=== PATIENT | male | born 1950 | race Caucasian/White ===

== ENCOUNTER 2017-11-01 09:53 | Inpatient (IN) ==
--- OUTSIDE RECORDS SUMMARY | 2017-11-01 11:23 | External Medical Summary | Continuity of Care Document ---
:1950 Demographics Phone Unavailable Preferred Language Unknown Marital Status Unknown Protestant Affiliation Unknown Race Unknown Ethnic Group Unknown Author Organization [facility] Allergies There is no data. Medications There is no data. Problems There is no data. Procedures There is no data. Results There is no data. Encounters ACCT No. Visit Discharge Status Pt. Type Provider Facility Loc./Unit Complaint Date/Time [id number] 10/14/2015 ACT Unknown 0125 08:06:00
[2017-11-01 11:40] VITALS: BMI 25.8
[2017-11-01] MEDS ORDERED: METOPROLOL 5mg/5ml INJECTION IVP ONE (11:43)
--- NOTE | 2017-11-01 11:54 | Cardiology History & Physical ---
History of Present Illness Chief complaint: pneumonia HPI: Valente is a 67 year old male who has been ill with the flu and community acquired pneumonia since 10/26 who was admitted to [facility] yesterday and today was found to be in atrial fibrillation with RVR and Dr. العراقي was contacted for admission to [facility] for further evaluation and treatment. He is examined in his room in CCU. He reports fever, chills, cough, no appetite , N/V. He denies chest pain or pressure, no palpitations, skipping or racing heart beats, dyspnea on exertion, dizziness or syncope. Denies ever seeing Cardiology, denies stress test or echo in the past. Review of Systems - Constitutional Constitutional: Present: as per HPI, chills, fever(s) - EENMT Eyes: Absent: change in vision Balance: Absent: vertigo Mouth/Throat: Absent: sore throat - Cardiovascular Cardiovascular: Absent: chest pain, palpitations, syncope, dyspnea on exertion Vascular: Absent: intermittent claudication, pedal edema - Respiratory Respiratory: Present: cough, chest congestion, excessive phlegm production - Gastrointestinal Gastrointestinal: Absent: abdominal pain, diarrhea, nausea, vomiting - Genitourinary Genitourinary: Absent: dysuria - Integumentary/Breasts Integumentary: Absent: rash - Neurological Neurological: Absent: dizziness - Endocrine Endocrine: Absent: palpitations PFSH Hypertension Hyperlipidemia Osteoarthritis Surgical History: none Family History: Mother - Father - , DM Brother - Sister - DM - Social History Smoking status: Never smoker Substance use type: does not use Alcohol intake frequency: 3 or more drinks per day (beer) Housing: house Household members: spouse Current occupational status: retired Current residence: Apartment/Private Home Medications Home Medications Medication Instructions Recorded Confirmed Type Aspirin [Adult Aspirin Regimen] 81 mg PO DAILY 11/01/17 11/01/17 History Fluticasone Nasal Ax[place] [Flonase] 1 spray DAILY 11/01/17 11/01/17 History Ibuprofen [Advil] 400 mg PO TID 11/01/17 11/01/17 History Lisinopril [Prinivil] 20 mg PO DAILY 11/01/17 11/01/17 History Allergies Allergy/AdvReac Type Severity Reaction Status Date / Time No Known Allergies Allergy Verified 11/01/17 13:35 Exam Vital signs: Pulse Rate 100 11/01/17 11:39 - Constitutional no acute distress, well nourished, cooperative - Routine HEENT Exam Head: Present: normocephalic ENT: Present: mucous membranes moist - Routine Neck Exam Absent: JVD, carotid bruit - Routine Chest/Breast/Axilla Exam Chest wall: Absent: tenderness - Routine Respiratory Exam Present: CTA bilaterally. Absent: rales, wheezes - Routine Cardiovascular Exam Present: no murmur, tachycardia, irregular rhythm - Routine Abdominal Exam Present: soft, normoactive bowel sounds - Routine Extremities Exam Present: no edema - Routine Skin Exam Present: intact, dry, warm - Routine Neurological Exam Present: alert, oriented X3 - Routine Psychiatric Exam Present: normal affect, normal thought process Results 11/02/17 03:59 11/02/17 03:59 Intake and Output 10/31/17 11/01/17 11/01/17 22:59 06:59 14:59 Other: Weight 190 lb 11.198 oz Patient Weight 11/02/17 06:59 Weight 190 lb 11.198 oz Abnormal Lab Results 11/01/17 11:38 Magnesium 2.1 Troponin I < 0.012 TSH 0.80 Specimen Hemolysis < 15 EKG interpretations - EKG EKG shows: atrial fibrillation - Blocks, axis, hypertrophy, ST abn Repolarization changes or abnormalities: nonspecific abnormality, ST segment, and/or T wave Hospital Course This is a general summary of the patient's hospital course. For more details refer to the complete medical record. Time spent with patient: 25 - 35 minutes Resuscitation Status: Full Code Assessment and Plan - Attestation Attestation Narrative: 11/04/17 15:34 Recommendation After examining the patient I agree with the above assessment. I am involved in the formulation of the patient's plan of care. - Assessment and Plan (1) Atrial fibrillation with RVR Status: Acute Unknown onset, asymptomatic - NPO for ALVINA/ DCCV this after noon - 2D Echo - Had Lovenox 1mg/kg this am, will start oral anticoagulation this evening (2) Acute diastolic HF (heart failure) Status: Acute Lasix 40mg IV q 12h for diuresis (3) Pneumonia, community acquired Status: Acute Per hospitalist, Dr. Milton, thank you for your assistance (4) Essential (primary) hypertension Status: Chronic (5) Mixed hyperlipidemia Status: Chronic - Assessment and Plan A Fib RVR: Unknown onset, asymptomatic - NPO for ALVINA/ DCCV this afternoon - 2D Echo pending - Had Lovenox 1mg/kg this am, will start oral anticoagulation this evening ADHF: Lasix 40mg IV q 12h for diuresis Pneumonia: Per hospitalist, Dr. Milton, thank you for your assistance
[2017-11-01] MEDS ORDERED: SALINE FLUSH 10ml SYRINGE ONE (13:13)
--- NOTE | 2017-11-01 14:47 | Consult Note ---
Consult Information - Data of Consult Consult date: 11/01/17 Requesting Physician: Rudy العراقي MD Primary Care Provider: [facility] - Consult Narrative Reason for consult: abnormal chest xray History of present illness: Patient is a 67-year-old male who was transferred from [facility] this morning to our CCU because patient was found to be in A. fib with RVR. He was originally admitted to [facility] yesterday for pneumonia. Patient reports he's had a cough and nasal symptoms for the last week. Has maybe had a low-grade fever. He reports his chest x-ray in the clinic revealed pneumonia and he was given at least 1 dose of ceftriaxone while hospitalized at [facility]. He has had no chest pain. He has no history of atrial fibrillation. He has seen Dr. العراقي this morning and sounds like he will be undergoing ALVINA and electrical cardioversion later today. Past Medical History Medical History HTN Osteoarthritis Surgical History: L cataract Family History: F- . DM M- . Schizophrenia Sister - . DM. 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 Social history: PCP- [facility] ([place]) Review of Systems All systems PM: 10-point ROS was reviewed, no additional remarkable complaints except (cough, SOA, arthritic pains) Medications Home Medications Medication Instructions Recorded Confirmed Type Aspirin [Adult Aspirin Regimen] 81 mg PO DAILY 11/01/17 11/01/17 History Fluticasone Nasal Elrod [Flonase] 1 spray DAILY 11/01/17 11/01/17 History Ibuprofen [Advil] 400 mg PO TID 11/01/17 11/01/17 History Lisinopril [Prinivil] 20 mg PO DAILY 11/01/17 11/01/17 History Allergies Allergy/AdvReac Type Severity Reaction Status Date / Time No Known Allergies Allergy Verified 11/01/17 13:35 Exam Vital Signs: Pulse Rate 100 11/01/17 11:39 Height/Weight/BMI: Height 1.83 m Weight 86.5 kg Body Mass Index 25.8 - Constitutional Present: no acute distress, well nourished, well developed - Routine HEENT Exam Head: Present: normocephalic, atraumatic Eye: Present: EOMI, PERRL ENT: Present: mucous membranes moist, oropharynx clear - Routine Neck Exam Present: supple. Absent: lymphadenopathy, thyromegaly - Routine Respiratory Exam Present: CTA bilaterally. Absent: wheezes - Routine Cardiovascular Exam Present: no murmur, irregularly irregular - Routine Abdominal Exam Present: soft, normoactive bowel sounds. Absent: tenderness, distended - Routine Extremities Exam Present: no edema, normal capillary refill - Routine Skin Exam Present: dry, warm - Routine Neurological Exam Present: alert, oriented X3, CN II-XII intact - Routine Psychiatric Exam Present: normal affect, cooperative Results - Labs Labs: Laboratory Tests 11/01/17 11:38 Magnesium 2.1 Troponin I < 0.012 TSH 0.80 WBC-9, hemoglobin 14.3, platelets 121 Sodium 135, potassium 3.4, chloride 100, CO2 21, BUN 17, creatinine 1.13, calcium 8.8 - Imaging and Cardiology Chest x-ray Additional comments: Outside facility CXR: mass-like infiltrate in right upper lung - pneumonia vs tumor. REc repeat CXR in 2 wks. Assessment and Plan (1) Pneumonia, community acquired Current visit: Yes Status: Acute (2) Atrial fibrillation with RVR Current visit: Yes Status: Acute (3) Essential (primary) hypertension Current visit: Yes Status: Acute Assessment and Plan: Assessment A. fib with RVR Acute hypoxic respiratory failure (likely secondary to CAP) Community-acquired pneumonia HTN Osteoarthritis Tobacco addiction Plan Patient admitted under Dr. العراقي for a-fib with RVR. Hospitalist service has been consulted to treat his pneumonia. Appreciate the consult. Anticoagulation and hypertension/rate control meds per Dr. العراقي. Continue ceftriaxone IV daily and Zithromax by mouth. DuoNeb's, Acapella, O2 prn. Offer nicotine patch. Watch for alcohol w/drawal. Following pt's cardioversion, reports he probably drinks at least 5 beers daily. PT/OT consult tomorrow. Chest x-ray in the a.m. as well as repeat labs. Care to return to [facility] in [place] upon dismissal. Case discussed with Dr. Milton. DVT Prophylaxis: SCD's Resuscitation Status: Full Code - Physician Narrative Physician: other (Ivy Milton MD) Narrative: Date: 11/01/17 Time: 1701 I have independently evaluated and examined this patient. I reviewed the chart, the patient's history, and the INVESTMENT FUND MANAGER/PA's documented findings as above. We discussed and formulated the assessment and plan as above with additions as below: Patient requesting to go home now that fever is better. Nurses report sedation did not relax patient but that he is more anxious now. is able to calm patient down. She also reports that patient is a daily drinker of beer and is downplaying how much he drinks. NSR on monitor currently. Oriented and cooperative with exam. Coughing intermittently. Plan: CAP abx, will transition to PO antibiotics soon. Will need a follow up CXR in 4 weeks. ETOH w/d protocol. Hospital Course Summary Disclaimer: The visit summary below is not to be considered part of the above Progress Note. Hospital Course: 11/01/17-hospitalist consult Patient admitted under Dr. العراقي for a-fib with RVR. Hospitalist service has been consulted to treat his pneumonia. Appreciate the consult. Anticoagulation and hypertension/rate control meds per Dr. العراقي. Continue ceftriaxone IV daily and Zithromax by mouth. DuoNeb's, Acapella, O2 prn. Offer nicotine patch. Watch for alcohol w/drawal. (Pt reports has no h/o w/drawal) PT/OT consult tomorrow. Chest x-ray in the a.m. as well as repeat labs. Care to return to [facility] in [place] upon dismissal. Case discussed with Dr. Milton.
[2017-11-01] MEDS ORDERED: NICOTINE 21 MG PATCH TD PRN (15:13)
[2017-11-01] MEDS ORDERED: CEFTRIAXONE 1 G in NS 50 ML IV SCH (15:15)
[2017-11-01] MEDS ORDERED: AZITHROMYCIN 500 MG TABLET PO ONE (15:17)
[2017-11-01] MEDS ORDERED: AMIODARONE 150 MG in NS 100 ML IV ONE (15:24)
[2017-11-01] MEDS ORDERED: ACETAMINOPHEN 325 MG TABLET PO PRN (15:27)
[2017-11-01] MEDS ORDERED: AMIODARONE 450 MG in NS 250ml 250 ML IV SCH (15:30)
[2017-11-01] MEDS ORDERED: AMIODARONE 900 MG in NS 500ml 500 ML IV SCH (15:30)
--- NOTE | 2017-11-01 16:26 | Transesophageal Echocardiogram ---
DATE OF PROCEDURE 11/01/2017 INDICATION The patient is a 67-year-old gentleman who was admitted with symptomatic atrial fibrillation of unknown duration and was referred for transesophageal echocardiogram to rule out intracardiac thrombus or mass. INFORMED CONSENT Informed consent was obtained after explaining the procedure and the potential risks to the patient who agreed to proceed with the procedure. PROCEDURE 1. Transesophageal echocardiogram. Conscious sedation was performed using Versed and fentanyl. Cetacaine spray was used for pharyngeal anesthesia. Probe was advanced into the esophagus and stomach and images were obtained in multiple planes. Left atrial dimension is normal. Left ventricle end-diastolic dimension is normal. Left ventricle wall thickness is mildly reduced with ejection fraction of about 45%. There is no thrombus in left atrium, left atrial appendage or left ventricle. Right atrium is normal. Right ventricle is normal. Mitral valve is morphologically normal with mild mitral regurgitation. Aortic valve is a trileaflet structure with no stenosis or insufficiency. Tricuspid valve shows mild tricuspid regurgitation. Pulmonary valve appears to be normal. There is no pericardial effusion. Agitated saline was injected which showed no evidence of [id number]-vj-nlvo shunt. Descending thoracic aorta shows very mild atherosclerosis. IMPRESSION 1. Mild global hypokinesia with ejection fraction of about 45%. 2. No intracardiac thrombus or mass. 3. Mild mitral regurgitation. 4. Mild tricuspid regurgitation. 5. Mild atherosclerosis of the descending thoracic aorta. 6. No intracardiac thrombus or mass. MTDD
--- NOTE | 2017-11-01 16:30 | DC Cardioversion ---
DATE OF PROCEDURE November 01, 2017 INDICATION The patient is a 67-year-old gentleman with atrial fibrillation of unknown duration and a transesophageal echocardiogram was performed today which revealed no intracardiac thrombus or mass and was referred for cardioversion. INFORMED CONSENT Informed consent was obtained after explaining the procedure and the potential risks to the patient who agreed to proceed with the procedure. PROCEDURE 1. DC cardioversion. Conscious sedation was performed using Versed and fentanyl. Anterior-posterior Zoll pads were applied. 360 joules of energy was delivered in synchronized manner and patient converted from atrial fibrillation to sinus rhythm. He tolerated the procedure well with no complications. IMPRESSION 1. Successful DC cardioversion of atrial fibrillation to sinus rhythm. PLAN Will keep him on anticoagulation and start antiarrhythmics to maintain sinus. NELIDAD
[2017-11-01] MEDS ORDERED: MIDAZOLAM 2mg/2ml INJECTION IVP ONE (16:44)
[2017-11-01] MEDS ORDERED: FentaNYL 100 MCG/2 ML INJECTION IVP ONE (16:44)
[2017-11-01] MEDS: FOLIC ACID 1 MG TABLET PO SCH (16:53)
[2017-11-01] MEDS: MULTI-VITAMIN + MINERAL TABLET PO SCH (16:53)
[2017-11-01] MEDS ORDERED: RIVAROXABAN 20 MG TABLET PO SCH (17:30)
[2017-11-01] MEDS: ALBUTEROL/IPRATROPIUM 2.5mg-0.5mg/3ml NEB AEROSOL SCH (17:40)
[2017-11-01] MEDS ORDERED: FUROSEMIDE 40 MG/4 ML INJECTION IVP SCH (21:00)
[2017-11-01] MEDS: IBUPROFEN 200 MG TABLET PO SCH (22:18)
[2017-11-02] MEDS: ALBUTEROL/IPRATROPIUM 2.5mg-0.5mg/3ml NEB AEROSOL SCH ×2 (07:38→10:52)
--- NOTE | 2017-11-02 07:46 | Echocardiogram ---
DATE OF PROCEDURE November 01, 2017 This is a two-dimensional echo with spectral Doppler, color-flow and M-mode. It was obtained in a patient with atrial fibrillation. Left atrial dimension is normal. Left ventricular end-diastolic dimension is normal. Left ventricle wall thickness is increased. Global hypokinesia is present with ejection fraction of about 30-35%. Right atrium is normal. Right ventricle is at the upper limits of normal. Aortic root dimension is increased with dilation of the aortic root at 4.3 cm. Mitral valve is morphologically normal with mild mitral regurgitation. Aortic valve is a trileaflet structure with no stenosis or insufficiency. Tricuspid valve shows mild tricuspid regurgitation with normal estimated pulmonary artery systolic pressure of 29. Pulmonary valve shows mild pulmonary insufficiency. There is no pericardial effusion. IMPRESSION 1. Global hypokinesia with ejection fraction of about 30-35%. 2. Left ventricular hypertrophy. 3. Aortic root dilation. 4. Mild mitral regurgitation. 5. Mild tricuspid regurgitation with normal estimated pulmonary artery systolic pressure of 29. 6. Mild pulmonary insufficiency. MTDD
[2017-11-02] MEDS: FOLIC ACID 1 MG TABLET PO SCH (08:35)
[2017-11-02] MEDS: IBUPROFEN 200 MG TABLET PO SCH (08:35)
[2017-11-02] MEDS: MULTI-VITAMIN + MINERAL TABLET PO SCH (08:36)
--- NOTE | 2017-11-02 08:41 | XRay Report ---
INDICATION: pneumonia PROCEDURE: CHEST 2-VIEWS UPRIGHT (PA & LAT) Encounter: Initial COMPARISON: None FINDINGS: Dense airspace consolidation in the right upper lobe with hazy airspace opacity in the right midlung. Fibrotic changes. Small right effusion. No pneumothorax. Heart size and mediastinal contours are within normal limits. Impression: Right-sided pneumonia or aspiration with small effusion. .
[2017-11-02] MEDS ORDERED: AZITHROMYCIN 500 MG TABLET PO SCH (09:00)
[2017-11-02] MEDS ORDERED: NICOTINE PATCH REMOVAL TD SCH (09:00)
[2017-11-02] MEDS ORDERED: LISINOPRIL 20 MG TABLET PO SCH (09:00)
[2017-11-02] MEDS ORDERED: ASPIRIN *EC* 81 MG TABLET PO SCH (09:00)
[2017-11-02] MEDS ORDERED: FLUTICASONE NASAL SPRAY 50mcg EA NOSTRIL SCH (09:00)
[2017-11-02] MEDS ORDERED: SPIRONOLACTONE 25 MG TABLET PO SCH (09:15)
[2017-11-02] MEDS ORDERED: FUROSEMIDE 40 MG TABLET PO SCH (09:15)
[2017-11-02] MEDS ORDERED: AMIODARONE 200 MG TABLET PO SCH (09:15)
--- NOTE | 2017-11-02 10:51 | Progress Note ---
- Date 11/02/17 Subjective: Patient requesting to go home. Coughing some still but no fevers or hypoxia. Objective Vital signs: Temperature 97.8 F 11/02/17 07:00 Pulse Rate 85 11/02/17 10:30 Respiratory Rate 30 H 11/02/17 10:30 Blood Pressure 97/49 11/02/17 10:30 Pulse Oximetry 90 11/02/17 10:30 Height/Weight/BMI: Height 6 ft Weight 86.5 kg Body Mass Index 25.8 - Constitutional Present: no acute distress, cooperative - Routine HEENT Exam Head: Present: normocephalic, atraumatic Eye: Present: EOMI, conjunctivae pink ENT: Present: mucous membranes moist - Routine Respiratory Exam Present: diminished air movement (RLL). Absent: dyspnea, respiratory distress Comments: R>L - Routine Cardiovascular Exam Present: RRR, no murmur - Routine Abdominal Exam Present: soft, normoactive bowel sounds, non distended, non tender - Routine Skin Exam Present: intact, dry, warm - Routine Neurological Exam Present: alert, oriented X3, CN II-XII intact Results - Labs CBC & Chem 7: 11/02/17 03:59 11/02/17 03:59 Assessment and Plan (1) Pneumonia, community acquired Current visit: Yes Status: Acute (2) Atrial fibrillation with RVR Current visit: Yes Status: Acute (3) Essential (primary) hypertension Current visit: Yes Status: Acute Assessment and Plan: Assessment A. fib with RVR Acute hypoxic respiratory failure (likely secondary to CAP) Community-acquired pneumonia HTN Osteoarthritis Tobacco addiction Plan Patient admitted under Dr. العراقي for a-fib with RVR. Hospitalist service has been consulted to treat his pneumonia. Appreciate the consult. Anticoagulation and hypertension/rate control meds per Dr. العراقي. Discontinie ceftriaxone IV daily and Zithromax Start doxycycline to complete a 7 day course of abx DuoNeb's, Acapella, O2 prn. nicotine patch. Watch for alcohol w/drawal Care to return to [facility] in [place] upon dismissal. - Physician Narrative Narrative: Date: 11/02/17 Time: 1048 Hospital Course Summary Disclaimer: The visit summary below is not to be considered part of the above Progress Note. Hospital Course: 2/20/18-hospitalist consult Patient admitted under Dr. العراقي for a-fib with RVR. Hospitalist service has been consulted to treat his pneumonia. Appreciate the consult. Anticoagulation and hypertension/rate control meds per Dr. العراقي. Continue ceftriaxone IV daily and Zithromax by mouth. DuoNeb's, Acapella, O2 prn. Offer nicotine patch. Watch for alcohol w/drawal. (Pt reports has no h/o w/drawal) PT/OT consult tomorrow. Chest x-ray in the a.m. as well as repeat labs. Care to return to [facility] in [place] upon dismissal. Case discussed with Dr. Milton.
[2017-11-02] MEDS ORDERED: CARVEDILOL 3.125 MG TABLET PO SCH (12:06)
[2017-11-02 14:36] VITALS: BP 137/99; O2SAT 92
[2017-11-02 15:53] VITALS: PULSE 89; RESP 30; TEMP 98.6
--- NOTE | 2017-11-03 10:11 | Discharge Summary ---
<Cathleen Guerra - Last Filed: 11/03/17 10:08> Discharge Information Date of admission: 11/01/17 11:20 Anticipated date of discharge: 11/02/17 Attending Physician: Rudy العراقي MD Primary care physician: Radha Nguyen APRN Consults: 11/01/17 13:30 Physician Consult [CONS] Routine Consulting Provider: Julia Jensen Reason For Exam: pneumonia Ordering Provider has Notified Public Information Officer: Yes - Discharge Diagnosis (1) Atrial fibrillation with RVR Status: Acute (2) Acute diastolic HF (heart failure) Status: Acute (3) Pneumonia, community acquired Status: Acute (4) Essential (primary) hypertension Status: Chronic (5) Mixed hyperlipidemia Status: Chronic Atrial fibrillation, Acute diastolic HF, community acquired pneumonia - Procedures Procedures: Date of Exam: 11/01/17 Type of Exam(s): US sigrid w/ doppler DATE OF PROCEDURE 11/01/2017 INDICATION The patient is a 67-year-old gentleman who was admitted with symptomatic atrial fibrillation of unknown duration and was referred for transesophageal echocardiogram to rule out intracardiac thrombus or mass. INFORMED CONSENT Informed consent was obtained after explaining the procedure and the potential risks to the patient who agreed to proceed with the procedure. PROCEDURE 1. Transesophageal echocardiogram. Conscious sedation was performed using Versed and fentanyl. Cetacaine spray was used for pharyngeal anesthesia. Probe was advanced into the esophagus and stomach and images were obtained in multiple planes. Left atrial dimension is normal. Left ventricle end-diastolic dimension is normal. Left ventricle wall thickness is mildly reduced with ejection fraction of about 45%. There is no thrombus in left atrium, left atrial appendage or left ventricle. Right atrium is normal. Right ventricle is normal. Mitral valve is morphologically normal with mild mitral regurgitation. Aortic valve is a trileaflet structure with no stenosis or insufficiency. Tricuspid valve shows mild tricuspid regurgitation. Pulmonary valve appears to be normal. There is no pericardial effusion. Agitated saline was injected which showed no evidence of [id number] shunt. Descending thoracic aorta shows very mild atherosclerosis. IMPRESSION 1. Mild global hypokinesia with ejection fraction of about 45%. 2. No intracardiac thrombus or mass. 3. Mild mitral regurgitation. 4. Mild tricuspid regurgitation. 5. Mild atherosclerosis of the descending thoracic aorta. 6. No intracardiac thrombus or mass. DATE OF PROCEDURE November 01, 2017 INDICATION The patient is a 67-year-old gentleman with atrial fibrillation of unknown duration and a transesophageal echocardiogram was performed today which revealed no intracardiac thrombus or mass and was referred for cardioversion. INFORMED CONSENT Informed consent was obtained after explaining the procedure and the potential risks to the patient who agreed to proceed with the procedure. PROCEDURE 1. DC cardioversion. Conscious sedation was performed using Versed and fentanyl. Anterior-posterior Zoll pads were applied. 360 joules of energy was delivered in synchronized manner and patient converted from atrial fibrillation to sinus rhythm. He tolerated the procedure well with no complications. IMPRESSION 1. Successful DC cardioversion of atrial fibrillation to sinus rhythm. PLAN Will keep him on anticoagulation and start antiarrhythmics to maintain sinus. - Laboratory Labs: 11/02/17 03:59 11/02/17 03:59 Laboratory Results - last 48 hr 11/01/17 11/02/17 11/02/17 11:38 03:53 03:59 WBC 7.6 RBC 4.11 L Hgb 13.1 L Hct 39.1 L MCV 95.1 MCH 31.9 MCHC 33.5 RDW Std Deviation 44.8 Plt Count 142 MPV 12.6 H Immature Gran % (Auto) 0.3 Neut % (Auto) 75.4 H Lymph % (Auto) 10.1 L Dillon % (Auto) 12.1 H Eos % (Auto) 1.8 Baso % (Auto) 0.3 Neut # (Auto) 5.7 Lymph # (Auto) 0.8 L Dillon # (Auto) 0.9 H Eos # (Auto) 0.1 Baso # (Auto) 0.0 Abs Immat Gran (auto) 0.02 Turbidity < 20 Sodium Potassium Chloride Carbon Dioxide Anion Gap BUN Creatinine GFR Calculation BUN/Creatinine Ratio Glucose Calculated Osmolality Calcium Magnesium 2.1 Total Bilirubin 0.50 Conjugated Bilirubin 0.00 Unconjugated Bilirubin 0.10 Icterus Index < 2 AST 33 ALT 21 Alkaline Phosphatase 22 L Troponin I < 0.012 Total Protein 6.5 Albumin 3.2 L Globulin 3.3 Albumin/Globulin Ratio 1.0 L TSH 0.80 Specimen Hemolysis < 15 < 15 11/02/17 03:59 WBC RBC Hgb Hct MCV MCH MCHC RDW Std Deviation Plt Count MPV Immature Gran % (Auto) Neut % (Auto) Lymph % (Auto) Dillon % (Auto) Eos % (Auto) Baso % (Auto) Neut # (Auto) Lymph # (Auto) Dillon # (Auto) Eos # (Auto) Baso # (Auto) Abs Immat Gran (auto) Turbidity < 20 Sodium 139 Potassium 3.6 Chloride 106 Carbon Dioxide 24 Anion Gap 9 BUN 21.0 H Creatinine 1.0 GFR Calculation 75 BUN/Creatinine Ratio 21 Glucose 104 Calculated Osmolality 271 Calcium 8.9 Magnesium 2.2 Total Bilirubin Conjugated Bilirubin Unconjugated Bilirubin Icterus Index < 2 AST ALT Alkaline Phosphatase Troponin I Total Protein Albumin Globulin Albumin/Globulin Ratio TSH Specimen Hemolysis < 15 History of Present Illness HPI: Valente is a 67 year old male who has been ill with the flu and community acquired pneumonia since 10/26 who was admitted to [facility] yesterday and today was found to be in atrial fibrillation with RVR and Dr. العراقي was contacted for admission to [facility] for further evaluation and treatment. He is examined in his room in CCU. He reports fever, chills, cough, no appetite , N/V. He denies chest pain or pressure, no palpitations, skipping or racing heart beats, dyspnea on exertion, dizziness or syncope. Denies ever seeing Cardiology, denies stress test or echo in the past. Hospital Course This is a general summary of the patient's hospital course. For more details refer to the complete medical record. Hospital course: A Fib RVR: Unknown onset, asymptomatic - NPO for SIGRID/ DCCV this afternoon - 2D Echo pending - Had Lovenox 1mg/kg this am, will start oral anticoagulation this evening ADHF: Lasix 40mg IV q 12h for diuresis Pneumonia: Per hospitalist, Dr. Milton, thank you for your assistance Time spent with patient: 25 - 35 minutes Resuscitation Status: Full Code Exam Vital signs: Temperature 98.6 F 11/02/17 13:15 Pulse Rate 89 11/02/17 13:30 Respiratory Rate 30 H 11/02/17 13:30 Blood Pressure 137/99 H 11/02/17 12:00 Pulse Oximetry 92 11/02/17 13:30 - Constitutional no acute distress, well nourished, cooperative - Routine HEENT Exam Head: Present: normocephalic ENT: Present: mucous membranes moist - Routine Neck Exam Absent: JVD, carotid bruit - Routine Chest/Breast/Axilla Exam Chest wall: Absent: tenderness - Routine Respiratory Exam Present: CTA bilaterally, diminished air movement (bases) - Routine Cardiovascular Exam Present: RRR, no murmur - Routine Abdominal Exam Present: soft, normoactive bowel sounds - Routine Extremities Exam Present: no edema - Routine Skin Exam Present: intact, dry, warm - Routine Neurological Exam Present: alert, oriented X3 - Routine Psychiatric Exam Present: normal affect, normal thought process Results 11/02/17 03:59 11/02/17 03:59 - Imaging and Cardiology Imaging & Cardiology Narrative: Date of Exam: 11/01/17 Type of Exam(s): US echo doppler complete DATE OF PROCEDURE November 01, 2017 This is a two-dimensional echo with spectral Doppler, color-flow and M-mode. It was obtained in a patient with atrial fibrillation. Left atrial dimension is normal. Left ventricular end-diastolic dimension is normal. Left ventricle wall thickness is increased. Global hypokinesia is present with ejection fraction of about 30-35%. Right atrium is normal. Right ventricle is at the upper limits of normal. Aortic root dimension is increased with dilation of the aortic root at 4.3 cm. Mitral valve is morphologically normal with mild mitral regurgitation. Aortic valve is a trileaflet structure with no stenosis or insufficiency. Tricuspid valve shows mild tricuspid regurgitation with normal estimated pulmonary artery systolic pressure of 29. Pulmonary valve shows mild pulmonary insufficiency. There is no pericardial effusion. IMPRESSION 1. Global hypokinesia with ejection fraction of about 30-35%. 2. Left ventricular hypertrophy. 3. Aortic root dilation. 4. Mild mitral regurgitation. 5. Mild tricuspid regurgitation with normal estimated pulmonary artery systolic pressure of 29. 6. Mild pulmonary insufficiency. 11/03/17 10:12 11/03/17 10:12 Date of Exam: 11/02/17 Ordering Provider: Julia Chandra Type of Exam(s): XR chest 2V Reason for Exam(s): pneumonia INDICATION: pneumonia PROCEDURE: CHEST 2-VIEWS UPRIGHT (PA & LAT) Encounter: Initial COMPARISON: None FINDINGS: Dense airspace consolidation in the right upper lobe with hazy airspace opacity in the right midlung. Fibrotic changes. Small right effusion. No pneumothorax. Heart size and mediastinal contours are within normal limits. Impression: Right-sided pneumonia or aspiration with small effusion. Discharge Plan - Med Rec/Dispo Referrals/Follow Up: Rudy العراقي MD [Physician] - 11/17/17 9:00 am [facility] Instructions: A-fib (Atrial Fibrillation) (DC), Heart Healthy Diet (DC) , Hypertension (DC) Prescriptions: New Folic Acid [Folate] 1 mg PO DAILY #30 tab Furosemide [Lasix] 40 mg PO DAILY #30 tab Rivaroxaban [Xarelto] 20 mg PO WS #30 tab Spironolactone [Aldactone] 25 mg PO DAILY #30 tab Thiamine HCl 100 mg PO DAILY #30 tab Carvedilol [Coreg] 3.125 mg PO BIDWM #60 tab Amiodarone [Pacerone] 200 mg PO DAILY #30 tab Doxycycline [Vibramycin] 100 mg PO BIDWM #13 tab Continue Lisinopril [Prinivil] 20 mg PO DAILY Aspirin [Adult Aspirin Regimen] 81 mg PO DAILY Ibuprofen [Advil] 400 mg PO TID Fluticasone Nasal [place] [Flonase] 1 spray DAILY - Disposition 01 Discharged Home, Self-Care - Dismissal Complete Discharge Instructions are:: Complete <Rudy العراقي - Last Filed: 11/04/17 15:35> Discharge Information Date of admission: 11/01/17 11:20 Attending Physician: Rudy العراقي MD Primary care physician: Radha Nguyen APRN Consults: 11/01/17 13:30 Physician Consult [CONS] Routine Consulting Provider: Julia Jensen Reason For Exam: pneumonia Ordering Provider has Notified Public Information Officer: Yes - Discharge Diagnosis (1) Atrial fibrillation with RVR Status: Acute (2) Acute diastolic HF (heart failure) Status: Acute (3) Pneumonia, community acquired Status: Acute (4) Essential (primary) hypertension Status: Chronic (5) Mixed hyperlipidemia Status: Chronic - Laboratory Labs: 11/02/17 03:59 11/02/17 03:59 Hospital Course This is a general summary of the patient's hospital course. For more details refer to the complete medical record. Exam Vital signs: Temperature 98.6 F 11/02/17 13:15 Pulse Rate 89 11/02/17 13:30 Respiratory Rate 30 H 11/02/17 13:30 Blood Pressure 137/99 H 11/02/17 12:00 Pulse Oximetry 92 11/02/17 13:30 Results 11/02/17 03:59 11/02/17 03:59 Attestation Narriative - Attestation Attestation Narrative: 11/04/17 15:35 Recommendation After examining the patient I agree with the above assessment. I am involved in the formulation of the patient's plan of care.
== END 2017-11-02 15:45 | disposition home or self-care (01) | DRG 308 ==
LOC: CCU 11:20
PROVIDERS: ADMIT Internal Medicine Cardiovascular Disease; ATTEND Internal Medicine Cardiovascular Disease